=== PATIENT | male | born 1940 | race Asian ===

== ENCOUNTER 2017-09-21 22:08 | Emergency (ER) | payer MEDICARE ==
--- NOTE | 2017-09-22 00:54 | ED ---
Throat Pain/Nasal Congestion - HPI Summary HPI Summary: This is cruz Salas documenting for attending Letty Thompson MD. This patient is a 77 year old M presenting to ED with a chief complaint of foreign body stuck in his throat since 2099. The patient felt this after he ate salmon for dinner. After he felt something was stuck, he started to cough and coughed up blood. He stopped coughing while driving COUNSEL. The patient is not currently feeling any pain. Symptoms aggravated by nothing. Symptoms alleviated by nothing. - History of Current Complaint Chief Complaint: EDForeignBodyEsophag Time Seen by Provider: 09/22/17 00:35 Hx Obtained From: Patient Onset/Duration: Sudden Onset, Lasting Hours - after dinner at 2099, Still Present Cough: Productive - blood - Allergies/Home Medications Allergies/Adverse Reactions: Allergies Allergy/AdvReac Type Severity Reaction Status Date / Time codeine Allergy Rash And Verified 09/21/17 22:11 Itching PMH/Surg Hx/FS Hx/Imm Hx Endocrine/Hematology History: Reports: Hx Diabetes Cardiovascular History: Reports: Hx Hypercholesterolemia Denies: Hx Coronary Artery Disease Musculoskeletal History: Reports: Hx Rheumatoid Arthritis Infectious Disease History: No Infectious Disease History: Denies: Traveled Outside the [place] in Last 30 Days - Family History Known Family History: Positive: Unknown - he does not know about his FMHx - Social History Alcohol Use: Daily - 0.5 glass of bread wine every day Hx Substance Use: No Smoking Status (MU): Former Smoker Review of Systems Positive: Other - foreign body stuck in throat Positive: Cough - with blood All Other Systems Reviewed And Are Negative: Yes Physical Exam - Summary Physical Exam Summary: VITAL SIGNS: Reviewed. GENERAL: Patient is a well-developed and nourished MALE who is lying comfortable in the stretcher. Patient is not in any acute respiratory distress. HEAD AND FACE: No signs of trauma. No ecchymosis, hematomas or skull depressions. No sinus tenderness. EYES: PERRLA, EOMI x 2, No injected conjunctiva, no nystagmus. EARS: Hearing grossly intact. Ear canals and tympanic membranes are within normal limits. MOUTH: Oropharynx within normal limits. NECK: Supple, trachea is midline, no adenopathy, no JVD, no carotid bruit, no c- spine tenderness, neck with full ROM. CHEST: Symmetric, no tenderness at palpation LUNGS: Clear to auscultation bilaterally. No wheezing or crackles. CVS: Regular rate and rhythm, S1 and S2 present, no murmurs or gallops appreciated. ABDOMEN: Soft, non-tender. No signs of distention. No rebound no guarding, and no masses palpated. Bowel sounds are normal. EXTREMITIES: FROM in all major joints, no edema, no cyanosis or clubbing. NEURO: Alert and oriented x 3. No acute neurological deficits. Speech is normal and follows commands. SKIN: Dry and warm Triage Information Reviewed: Yes Vital Signs On Initial Exam: Initial Vitals Temp Pulse Resp BP Pulse Ox 98.4 F 82 18 138/71 99 09/21/17 22:11 09/21/17 22:11 09/21/17 22:11 09/21/17 22:11 09/21/17 22:11 Vital Signs Reviewed: Yes Diagnostics - Vital Signs Vital Signs Temp Pulse Resp BP Pulse Ox 09/21/17 22:11 98.4 F 82 18 138/71 99 - Laboratory Lab Statement: Any lab studies that have been ordered have been reviewed, and results considered in the medical decision making process. EENT Course/Dx - Course Assessment/Plan: This patient is a 77 yo M who is in the ED after having salmon at 2100. Shortly after eating, he felt a foreign body sensation in his throat. He had mild pain and mild bleeding that stopped COUNSEL. He was discharged home with instructions to follow up with ENT physician (Dr. Garcia) for possible laryngoscopy. - Differential Diagnoses Differential Diagnoses: Foreign Body - in throat - Diagnoses Provider Diagnoses: Foreign body in throat Discharge - Sign-Out/Discharge Documenting (check all that apply): Patient Departure - Discharge Plan Condition: Stable Disposition: HOME Patient Education Materials: Foreign Body in Pharynx (ED) Referrals: Kevin Garcia MD [Medical Doctor] - (Follow up with Dr. Garcia TODAY.) Additional Instructions: RETURN TO THE EMERGENCY DEPARTMENT FOR CHANGING OR WORSENING SYMPTOMS.
[2017-09-22 00:57] VITALS: BP 133/75
== END 2017-09-22 00:56 | disposition home or self-care (01) ==
LOC: ED 22:08
DX: S10.15XA Superficial foreign body of throat, initial encounter (principal); T17.920A Food in respiratory tract, part unspecified causing asphyxiation, initial encounter; Z87.891 Personal history of nicotine dependence; R04.2 Hemoptysis
CPT/HCPCS: 99282